=== PATIENT | male | born 1990 | race African-American/Black ===

== ENCOUNTER 2022-08-03 20:35 | Emergency (ER) | payer OTHER ==
[~2022-08-03] VITALS: Ht 185.4 cm; Wt 73.0 kg
[2022-08-03 21:00] VITALS: BP 130/81
[2022-08-03] MEDS ORDERED: NALO4SPR BOTHNSTRLS (21:35)
== END 2022-08-03 21:42 | disposition home or self-care (01) ==
LOC: ER 20:35
DX: T40.711A Poisoning by cannabis, accidental (unintentional), initial encounter (principal); Y92.89 Other specified places as the place of occurrence of the external cause
CPT/HCPCS: 99283